=== PATIENT | female | born 2000 | race Caucasian/White ===

== ENCOUNTER 2023-10-01 18:48 | Emergency (ER) | payer OTHER ==
[2023-10-01 18:59] VITALS: BP 124/75; PULSE 80; RESP 18; TEMP 98; BMI 22.6
[2023-10-01] MEDS ORDERED: FAMOTIDINE 20 MG TABLET PO ONE (20:09)
[2023-10-01] MEDS ORDERED: diphenhydrAMINE HCL 25 MG CAPSULE (FP) PO ONE ×2 (20:09→20:12)
[2023-10-01] MEDS ORDERED: FAMOTIDINE 20 MG TABLET ONE (20:12)
== END 2023-10-01 21:53 | disposition home or self-care (01) ==
LOC: JER 18:48
DX: T78.1XXA Other adverse food reactions, not elsewhere classified, initial encounter (principal); R21 Rash and other nonspecific skin eruption
CPT/HCPCS: 99283-25